=== PATIENT | female | born 1960 | race African-American/Black ===

== ENCOUNTER 2017-06-12 07:18 | Emergency (ER) | payer MEDICARE ==
[~2017-06-12] VITALS: Ht 167.6 cm; Wt 80.0 kg
[2017-06-12 07:21] VITALS: BP 156/96
[2017-06-12] MEDS ORDERED: BENZ0.5T3 PO (07:25)
[2017-06-12] MEDS ORDERED: AMLO1POW MC (07:25)
[2017-06-12] MEDS ORDERED: OMEP20CA10 PO (07:25)
[2017-06-12] MEDS ORDERED: OXYB5TAB11 PO (07:25)
[2017-06-12] MEDS ORDERED: LOSA25TA12 PO (07:25)
[2017-06-12] MEDS ORDERED: SERT25TA74 PO (07:25)
[2017-06-12] MEDS ORDERED: LORA10TA7 PO (07:25)
[2017-06-12] MEDS ORDERED: CLON0.5T4 PO (07:25)
[2017-06-12] MEDS ORDERED: CLON0.1T PO (07:25)
[2017-06-12] MEDS ORDERED: ATOR10TA69 PO (07:25)
[2017-06-12] MEDS ORDERED: CLONAZEPAM 0.5MG TABLET PO ONE (07:45)
[2017-06-12] MEDS ORDERED: LOSARTAN POTASSIUM 25 MG TABLET PO ONE (07:45)
== END 2017-06-12 08:35 | disposition home or self-care (01) ==
LOC: ER 08:31
DX: I10 Essential (primary) hypertension (principal); J44.9 Chronic obstructive pulmonary disease, unspecified; Z76.0 Encounter for issue of repeat prescription; Z88.0 Allergy status to penicillin
CPT/HCPCS: 99283

== ENCOUNTER 2017-10-30 03:56 | Emergency (ER) | payer MEDICAID, MEDICARE ==
[~2017-10-30] VITALS: Ht 165.1 cm; Wt 95.0 kg
[~2017-10-30 03:56] MED LIST: AMLO1POW MC; ATOR10TA69 PO; BENZ0.5T3 PO; CLON0.1T PO; CLON0.5T12 PO; LORA10TA7 PO; LOSA25TA12 PO; OMEP20CA10 PO; OXYB5TAB11 PO; SERT25TA74 PO
[2017-10-30] MEDS ORDERED: OXYCODONE HCL/ACETAMINOPHEN 5/325MG TABLET PO ONE (04:45)
[2017-10-30 06:50] VITALS: BP 138/87
== END 2017-10-30 06:49 | disposition home or self-care (01) ==
LOC: EDBD 03:56 → ER 03:56
DX: S80.11XA Contusion of right lower leg, initial encounter (principal); J44.9 Chronic obstructive pulmonary disease, unspecified; J45.909 Unspecified asthma, uncomplicated; I10 Essential (primary) hypertension; Z88.0 Allergy status to penicillin; W01.0XXA Fall on same level from slipping, tripping and stumbling without subsequent striking against object, initial encounter; Y93.89 Activity, other specified; Y92.018 Other place in single-family (private) house as the place of occurrence of the external cause
CPT/HCPCS: 71100; 73590; 99284